=== PATIENT | male | born 1970 | race Caucasian/White ===

== ENCOUNTER 2025-07-19 15:15 | Inpatient (IN) | payer SELFPAY ==
[~2025-07-19] VITALS: Ht 180.3 cm; Wt 87.5 kg
[2025-07-19 15:18] VITALS: O2SAT 98
[2025-07-19 16:00] LABS: BASOPHILS % 0.2 % (0.0-2.0); EOSINOPHILS % 0.1 % (0.0-5.0); HEMATOCRIT. 34.6 % (42.0-52.0); HEMOGLOBIN. 10.5 g/dL (14.0-18.0); LYMPHOCYTES % 14.2 % (20.0-50.0); MEAN PLATELET VOLUME 8.0 fl (7.4-10.4); MONOCYTES % 9.7 % (2.0-8.0); NEUTROPHILS % 75.8 % (40.0-76.0); PLATELET 188 x1000/uL (130-400); RED BLOOD CELL COUNT 4.56 mill/uL (4.7-6.1); RED CELL DISTRIBUTION WIDTH 21.8 % (11.6-14.6)
[2025-07-19 16:14] LABS: CREATININE 0.9 mg/dL (0.6-1.3)
[2025-07-19 16:15] LABS: LDL CHOLESTEROL 197 mg/dL (5-100); PROTEIN TOTAL 8.1 g/dL (6.0-8.3); TROPONIN I HIGH SENSITIVITY 5 ng/L (3.0-53); UREA NITROGEN BLOOD 6 mg/dL (9-23)
[2025-07-19 16:16] LABS: ASPARTATE AMINOTRANSFERASE 128 IU/L (<34)
[2025-07-19 16:17] LABS: BILIRUBIN DIRECT 0.4 mg/dL (<=3.0); BILIRUBIN TOTAL 1.5 mg/dL (0.1-1.0)
[2025-07-19 16:21] LABS: INR 1.1
[2025-07-19] MEDS: POTASSIUM CHLORIDE 20MEQ/PACKET PO ONE (17:07)
[2025-07-19] MEDS: KCL 10MEQ/50ML PREMIX 50 ML IV SCH (17:07)
[2025-07-19] MEDS: SODIUM CHLORIDE 0.9% 1,000 ML IV ONE (17:07)
[2025-07-19] MEDS ORDERED: IPRATROPIUM/ALBUTEROL 0.5-3(2.5)MG/3ML NEB HHN PRN (17:45)
[2025-07-19] MEDS ORDERED: DOCUSATE SODIUM 100MG CAPSULE PO PRN (17:45)
[2025-07-19] MEDS ORDERED: DEXTROSE 50% WATER 50ML SYRINGE IV PRN (17:45)
[2025-07-19] MEDS ORDERED: ONDANSETRON HCL 4MG/2ML INJ IV PRN (17:45)
[2025-07-19] MEDS ORDERED: ACETAMINOPHEN 325MG TABLET PO PRN ×2 (17:45)
[2025-07-19] MEDS: MAGNESIUM 2 G PREMIX 50 ML IV ONE (19:55)
[2025-07-19] MEDS: ASPIRIN 81MG EC TABLET PO SCH (20:14)
[2025-07-19] MEDS: CLOPIDOGREL 75MG TABLET PO SCH (20:15)
[2025-07-19] MEDS: INSULIN LISPRO 100 UNITS/ML SUBCUT SCH (20:40)
[2025-07-19] MEDS: BLOOD SUGAR DIAGNOSTIC STRIP TEST SCH (20:41)
[2025-07-19 21:21] LABS: CLARITY URINE CLEAR (CLEAR); COLOR URINE YELLOW (YELLOW); GLUCOSE URINE NEGATIVE (NEGATIVE); KETONES URINE 1+ (NEGATIVE); LEUKOCYTE ESTERASE URINE NEGATIVE (NEGATIVE); NITRITE URINE NEGATIVE (NEGATIVE); OCCULT BLOOD URINE NEGATIVE (NEGATIVE); PH URINE 6.5 (4.5-8.0); PROTEIN URINE TRACE (NEGATIVE); SPECIFIC GRAVITY URINE 1.072 (1.005-1.030); UROBILINOGEN URINE 1.0 E.U./dL (0.2-1.0)
[2025-07-19] MEDS: ATORVASTATIN CALCIUM 40MG TABLET PO SCH (21:24)
[2025-07-19] MEDS: ENOXAPARIN 30MG/0.3ML SYR SUBCUT SCH (21:32)
[2025-07-19 21:42] LABS: *AMPHETAMINES SCREEN URINE NEGATIVE (NEGATIVE); *BARBITURATES SCREEN URINE NEGATIVE (NEGATIVE); *BENZODIAZEPINES SCREEN URINE NEGATIVE (NEGATIVE)
[2025-07-19 21:43] LABS: *COCAINE SCREEN URINE NEGATIVE (NEGATIVE); CANNABINOID URINE SCREEN NEGATIVE (NEGATIVE); ECSTASY MDMA SCREEN URINE NEGATIVE (NEGATIVE); METHADONE URINE SCREEN NEGATIVE (NEGATIVE); OPIATES URINE SCREEN NEGATIVE (NEGATIVE); PHENCYCLIDINE URINE SCREEN NEGATIVE (NEGATIVE)
[2025-07-19 22:14] LABS: BACTERIA URINE NONE SEEN; MUCUS URINE TRACE /lpf (NONE/TRACE); RBC URINE NONE SEEN /hpf (0-2); SQUAMOUS EPITHELIAL CELL URINE NONE SEEN /lpf (RARE/1+); WBC URINE NONE SEEN /hpf (0-2)
[2025-07-19] MEDS ORDERED: IOHEXOL-350 100 ML BOTTLE ONE (23:33)
[2025-07-20] VITALS (8 sets, daily range): BP systolic 128–171; BP diastolic 57–92; PULSE 78–96; RESP 16–20; TEMP 36.7–37.6; O2SAT 96–99
[2025-07-20 07:15] LABS: BASOPHILS % 0.2 % (0.0-2.0); EOSINOPHILS % 0.2 % (0.0-5.0); HEMATOCRIT. 30.5 % (42.0-52.0); HEMOGLOBIN. 9.5 g/dL (14.0-18.0); LYMPHOCYTES % 16.4 % (20.0-50.0); MEAN PLATELET VOLUME 8.1 fl (7.4-10.4); MONOCYTES % 9.7 % (2.0-8.0); NEUTROPHILS % 73.5 % (40.0-76.0); PLATELET 140 x1000/uL (130-400); RED BLOOD CELL COUNT 4.03 mill/uL (4.7-6.1); RED CELL DISTRIBUTION WIDTH 21.6 % (11.6-14.6)
[2025-07-20 07:35] LABS: CREATININE 0.8 mg/dL (0.6-1.3); TRIGLYCERIDE 117 mg/dL (0-150)
[2025-07-20 07:36] LABS: LDL CHOLESTEROL 164 mg/dL (5-100); UREA NITROGEN BLOOD < 5 mg/dL (9-23)
[2025-07-20] MEDS: PNEUMOCOCCAL 20-VAL CONJ-DIP CRM 0.5ML IM ONE (09:00)
[2025-07-20] MEDS: INFLUENZA VACCINE 05/PF 0.5 ML SYRINGE IM ONE (09:00)
[2025-07-20] MEDS: CLONIDINE 0.1MG TABLET PO PRN (11:12)
[2025-07-20] MEDS: PANTOPRAZOLE SODIUM 40 MG/VIAL IV SCH (12:16)
[2025-07-20] MEDS: POTASSIUM CHLORIDE 20MEQ TABLET SR PO NR (12:17)
[2025-07-20 13:12] LABS: HEPATITIS C AB NON REACTIVE (Neg) (Negative)
[2025-07-20 14:35] LABS: PHOSPHORUS 2.6 mg/dL (2.5-4.9)
[2025-07-20] MEDS: CEFTRIAXONE 1GM/50ML 50 ML IV SCH (14:57)
[2025-07-20 18:39] LABS: INFLUENZA TYPE A Presumptive Negative (Pres. Neg.); INFLUENZA TYPE B Presumptive Negative (Pres. Neg.)
[2025-07-20] MEDS: METOPROLOL TARTRATE 25MG TABLET PO SCH (21:50)
[2025-07-21] VITALS: BP 122/75; PULSE 67; RESP 19; TEMP 36.6; O2SAT 98
[2025-07-21 04:00] VITALS: BP 126/77; PULSE 77; RESP 19; TEMP 36.7; O2SAT 98
[2025-07-21 08:00] VITALS: BP 131/93; PULSE 75; RESP 16; TEMP 36.7; O2SAT 97
[2025-07-21 08:10] LABS: HEMATOCRIT. 30.7 % (42.0-52.0); HEMOGLOBIN. 9.4 g/dL (14.0-18.0); MEAN PLATELET VOLUME 8.3 fl (7.4-10.4); PLATELET 137 x1000/uL (130-400); RED BLOOD CELL COUNT 3.97 mill/uL (4.7-6.1); RED CELL DISTRIBUTION WIDTH 22.3 % (11.6-14.6)
[2025-07-21 08:18] LABS: INR 1.1
[2025-07-21 08:32] LABS: CREATININE 0.8 mg/dL (0.6-1.3); UREA NITROGEN BLOOD 9 mg/dL (9-23)
[2025-07-21 08:33] LABS: FOLIC ACID (FOLATE) SERUM 17.48 ng/mL (>5.38); PROTEIN TOTAL 7.1 g/dL (6.0-8.3); VITAMIN B12 SERUM 499 pg/mL (211-911)
[2025-07-21 08:34] LABS: ASPARTATE AMINOTRANSFERASE 74 IU/L (<34); BILIRUBIN DIRECT 0.3 mg/dL (<=3.0); BILIRUBIN TOTAL 1.0 mg/dL (0.1-1.0); PHOSPHORUS 3.5 mg/dL (2.5-4.9)
[2025-07-21 12:00] VITALS: BP 149/85; PULSE 73; RESP 19; TEMP 36.5; O2SAT 100
[2025-07-21] MEDS ORDERED: CLOP-31 PO (14:54)
[2025-07-21] MEDS ORDERED: LIP40 PO (14:54)
[2025-07-21] MEDS ORDERED: METO25TA6 PO (14:54)
[2025-07-21] MEDS ORDERED: ASPI-1406 PO (14:54)
[2025-07-21 15:20] LABS: BAND% 5.0 % (1.0-6.0); LYMPHOCYTES % MANUAL 17.0 % (20.0-50.0); METAMYELOCYTES % 1.0 % (0-0); MONOCYTES % MANUAL 6.0 % (2.0-8.0); NEUTROPHILS % MANUAL 71.0 % (45.0-75.0); PLATELET ESTIMATE NORMAL
[2025-07-21 16:00] VITALS: BP 135/80; PULSE 75; RESP 18; TEMP 36.6; O2SAT 98
[2025-07-21 16:11] VITALS: BP 135/90; PULSE 70; RESP 16; TEMP 98.1
== END 2025-07-21 17:32 | disposition home or self-care (01) | DRG 52 ==
LOC: ER 15:15 → EDBEDREQTM 17:52 → EDBEDREQ 17:52 → EDBEDREQSVC 21:03 → EDBEDREQTM 21:06 → 7WST 21:06 → ENRESERV 23:16
PROVIDERS: ADMIT Family Medicine Adult Medicine; ATTEND Family Medicine Adult Medicine
DX: G93.40 Encephalopathy, unspecified (principal); D50.9 Iron deficiency anemia, unspecified; I10 Essential (primary) hypertension; E87.6 Hypokalemia; R00.0 Tachycardia, unspecified; R73.9 Hyperglycemia, unspecified; E78.00 Pure hypercholesterolemia, unspecified; Z79.899 Other long term (current) drug therapy
CPT/HCPCS: 36415; 70496; 70498; 70551; 71045; 80048; 80061; 80076; 80305; 80320; 81003; 82270; 82607; 82728; 82746; 82962; 83036; 83540; 83550; 83721; 83735; 83880; 84100; 84145; 84443; 84484; 85025; 86705; 87340; 87426; 87804; 92610; 93005; 96365; 97161; 97165; 99285; A4606; J0696; J1650; J2470; J3475; J3480; J7030; Q9967; G0480